=== PATIENT | male | born 1980 | race Caucasian/White ===

== ENCOUNTER 2016-06-12 17:38 | Emergency (ER) | payer OTHER ==
--- NOTE | 2016-06-12 18:21 | RAD ---
EXAMINATION:CHEST - 2 VIEWS CLINICAL INDICATION: Chest pain. COMPARISON:none FINDINGS: The cardiomediastinal silhouette is within normal limits. There is no adenopathy identified. There is no pleural effusion. The lungs are clear. The osseous structures are unremarkable for age. IMPRESSION: Negative PA and lateral views of the chest. No acute cardiopulmonary process is identified.
[2016-06-12 19:01] LABS: ABSOLUTE NEUTROPHIL COUNT 5.9 K/mm3 (1.8-7.7); BASO # 0.1 K/mm3 (0.0-0.2); BASO % 0.7 % (0.2-1.0); EOS # 0.5 (0.0-0.5); EOS % 4.3 % (0.9-2.9); HEMATOCRIT 47.3 % (32.0-52.0); HEMOGLOBIN 16.4 gm/l (14.0-18.0); IMM NEUT # 0.1 K/mm3 (0-0.2); IMM NEUT% 0.5 % (0-1); LYMPH # 3.5 (1.0-4.8); LYMPH % 32.5 % (15-45); MEAN CELL VOLUME 83.7 fl (80.0-94.0); MEAN CORPUSCULAR HGB CONC 34.7 g/dl (33.0-37.0); MEAN PLATELET VOLUME 10.3 fl (7.4-10.4); MONO # 0.9 (0.0-0.8); MONO % 8.2 % (4-12); NEUT % 53.8 % (43-75); PLATELET COUNT 237 K/mm3 (130-400)
[2016-06-12 19:12] LABS: ALB/GLOB RATIO 1.5 (>1.0); ALBUMIN 4.1 gm/dL (3.5-5.7); CALCIUM 9.1 mg/dL (8.6-10.3); TROPONIN I < 0.01 ng/ml (0.0-0.06)
[2016-06-12 19:16] LABS: CKMB ISOENZYME 0.6 ng/ml (0.6-6.3)
== END 2016-06-12 19:53 | disposition home or self-care (01) ==
LOC: ED 17:38
DX: R07.9 Chest pain, unspecified (principal); M25.512 Pain in left shoulder; Z87.01 Personal history of pneumonia (recurrent)